=== PATIENT | female | born 1965 | race Caucasian/White ===

== ENCOUNTER → 2023-01-22 10:00 | Outpatient (CLI) | payer OTHER, SELFPAY ==
[2023-01-22 18:47] LABS: Basophils # 0.1 K/mm3 (0-0.2); Basophils % 0.8 % (0.1-2.0); Eosinophils # 0.2 K/mm3 (0.0-0.4); Eosinophils % 3.5 % (0.1-12.0); Hematocrit 42.6 % (37.0-47.0); Hemoglobin 14.3 g/dL (12.2-16.2); Lymphocytes # 2.2 K/mm3 (0.7-4.5); Lymphocytes % 34.8 % (10-50); Mean Corpuscular HGB Conc 33.5 g/dL (31.8-35.4); Mean Corpuscular Hemoglobin 32.2 pg (27.0-31.2); Mean Corpuscular Volume 96.3 fl (81-99); Mean Platelet Volume 7.4 fl (7.4-10.4); Monocytes # 0.3 K/mm3 (0.1-1.0); Monocytes % 5.2 % (1.7-9.3); Neutrophils # 3.5 K/mm3 (1.8-7.8); Neutrophils % 55.8 % (37.0-80.0); Platelet Count 390 K/mm3 (142-424); Red Blood Count 4.42 M/mm3 (4.20-5.40); Red Cell Distribution Width 13.4 % (11.5-17.5); White Blood Count 6.2 K/mm3 (4.8-10.8)
[2023-01-22 18:57] LABS: Alanine Aminotransferase 13 U/L (12-78); Albumin Level 4.1 g/dl (3.5-5.0); Albumin/Globulin Ratio 1.4 (1.1-1.8); Alkaline Phosphatase 125 U/L (38-126); Anion Gap 12.2 mEq/L (5-15); Aspartate Amino Transferase 21 U/L (14-36); Bilirubin,Total 0.2 mg/dl (0.2-1.3); Blood Urea Nitrogen 10 mg/dl (7-17); Calcium 9.1 mg/dl (8.4-10.2); Carbon Dioxide 30 mmol/L (22.0-30.0); Chloride 101 mmol/L (98-107); Chol/HDL Ratio 4.5 (1-3.5); Cholesterol 158 mg/dl (140-200); Estimated Glomerular Filt Rate 57 ml/min (>60); GFR (African American) 69 ML/MIN (>60); Globulin 2.9 g/dL (1.3-3.2); Glucose 102 mg/dl (74-100); HDL Cholesterol 35 mg/dl (40-60); Potassium 4.2 mmoL/L (3.5-5.1); Sodium 139 mmol/L (136-145); Triglycerides 141 mg/dl (30-150); VLDL Cholesterol 28 mg/dL (0-40)
[2023-01-22 19:08] LABS: Direct LDL Cholesterol 82.89 mg/dL (100-129)
[2023-01-22 19:14] LABS: T4 (Thyroxine) 5.5 ug/dl (5.53-11.0)
[2023-01-22 19:16] LABS: 25-OH Vitamin D, Total 38.2 ng/mL (30-100)
== END ==
PROVIDERS: PCP Emergency Medicine; Visit Provider Emergency Medicine
DX: R53.83 Other fatigue (principal); Z79.899 Other long term (current) drug therapy
CPT/HCPCS: 80053; 80061; 82306; 84436; 84443; 85025

== ENCOUNTER → 2023-03-19 09:24 | Outpatient (CLI) | payer OTHER, SELFPAY ==
[2023-03-19 19:29] LABS: Amphetamine/Metha Screen,Urine Negative ng/ml (<1000)
[2023-03-19 19:30] LABS: Barbiturates Screen,Urine Negative ng/ml (<200)
[2023-03-19 19:31] LABS: Benzodiazepines Screen,Urine Negative ng/ml (<200); Cannabinoid Screen,Urine Negative ng/ml (<50)
[2023-03-19 19:35] LABS: Cocaine Screen,Urine Negative ng/ml (<300)
[2023-03-19 19:36] LABS: Methadone Screen,Urine Negative ng/ml (<300); Opiate Screen,Urine Positive ng/ml (<300)
[2023-03-19 19:40] LABS: Phencyclidine Screen,Urine Negative ng/ml (<25)
[2023-03-19 19:50] LABS: Thyroid Stimulating Hormone 9.18 uIU/mL (0.465-4.68)
== END ==
PROVIDERS: PCP Emergency Medicine; Visit Provider Emergency Medicine
DX: M54.12 Radiculopathy, cervical region (principal); R79.89 Other specified abnormal findings of blood chemistry
CPT/HCPCS: 80305; 84443

== ENCOUNTER → 2023-05-04 09:12 | Outpatient (CLI) | payer OTHER, SELFPAY ==
[2023-05-04 18:52] LABS: Amphetamine/Metha Screen,Urine Negative ng/ml (<1000)
[2023-05-04 18:53] LABS: Barbiturates Screen,Urine Negative ng/ml (<200); Benzodiazepines Screen,Urine Negative ng/ml (<200)
[2023-05-04 18:54] LABS: Cannabinoid Screen,Urine Negative ng/ml (<50); Cocaine Screen,Urine Negative ng/ml (<300)
[2023-05-04 18:55] LABS: Methadone Screen,Urine Negative ng/ml (<300)
[2023-05-04 18:56] LABS: Opiate Screen,Urine Positive ng/ml (<300); Phencyclidine Screen,Urine Negative ng/ml (<25)
== END ==
LOC: LAB.DROPOF 05-05 09:12
PROVIDERS: PCP Emergency Medicine; Visit Provider Emergency Medicine
DX: Z79.899 Other long term (current) drug therapy (principal)
CPT/HCPCS: 80305

== ENCOUNTER 2023-07-08 21:49 | Outpatient (CLI) | payer OTHER, SELFPAY ==
[2023-07-08 19:20] LABS: Chloride 101 mmol/L (98-107); Potassium 3.9 mmoL/L (3.5-5.1); Sodium 136 mmol/L (136-145)
[2023-07-08 19:23] LABS: Alanine Aminotransferase 14 U/L (12-78); Albumin/Globulin Ratio 1.5 (1.1-1.8); Alkaline Phosphatase 118 U/L (38-126); Anion Gap 10.9 mEq/L (5-15); Aspartate Amino Transferase 30 U/L (14-36); Bilirubin,Total 0.4 mg/dl (0.2-1.3); Blood Urea Nitrogen 8 mg/dl (7-17); Carbon Dioxide 28 mmol/L (22.0-30.0); Estimated Glomerular Filt Rate 74 ml/min (>60); GFR (African American) 90 ML/MIN (>60); Globulin 2.7 g/dL (1.3-3.2); Total Protein,Serum 6.7 g/dl (6.3-8.2)
[2023-07-08 19:24] LABS: Calcium 8.9 mg/dl (8.4-10.2); Glucose 96 mg/dl (74-100)
[2023-07-08 20:00] LABS: Thyroid Stimulating Hormone 6.15 uIU/mL (0.465-4.68)
[2023-07-08 21:37] LABS: Creatinine,Urine Random 88 mg/dL (Not Estab.)
[2023-07-08 21:48] LABS: Amphetamine/Metha Screen,Urine Negative ng/ml (<1000)
[2023-07-08 21:51] LABS: Barbiturates Screen,Urine Negative ng/ml (<200)
[2023-07-08 21:52] LABS: Benzodiazepines Screen,Urine Negative ng/ml (<200); Cannabinoid Screen,Urine Negative ng/ml (<50)
[2023-07-08 21:53] LABS: Cocaine Screen,Urine Negative ng/ml (<300); Methadone Screen,Urine Negative ng/ml (<300); Microalbumin < 6.000 mg/L (0-16.7)
[2023-07-08 21:54] LABS: Hemoglobin A1C 5.7 % (4.0-6.0); Opiate Screen,Urine Positive ng/ml (<300)
[2023-07-08 21:57] LABS: Phencyclidine Screen,Urine Negative ng/ml (<25)
== END 2023-07-08 23:59 ==
LOC: LAB.DROPOF 21:50
PROVIDERS: PCP Internal Medicine; Visit Provider Internal Medicine
DX: Z79.899 Other long term (current) drug therapy (principal); E03.9 Hypothyroidism, unspecified
CPT/HCPCS: 80053; 80307; 82043; 82570; 83036; 84443

== ENCOUNTER 2023-09-28 16:22 | Outpatient (CLI) | payer OTHER, SELFPAY ==
[2023-09-28 19:14] LABS: Thyroid Stimulating Hormone 0.11 uIU/mL (0.465-4.68)
== END 2023-09-28 23:59 ==
LOC: LAB.DROPOF 09-29 16:22
PROVIDERS: PCP Internal Medicine; Visit Provider Internal Medicine
DX: E03.9 Hypothyroidism, unspecified (principal)
CPT/HCPCS: 84443

== ENCOUNTER 2023-11-29 18:00 | Outpatient (CLI) | payer OTHER, SELFPAY | END 2023-11-29 23:59 | disposition home or self-care (01) | LOC: LAB.DROPOF 11-30 08:18 | PROVIDERS: PCP Internal Medicine; Visit Provider Internal Medicine | DX: R79.89 Other specified abnormal findings of blood chemistry (principal); Z79.899 Other long term (current) drug therapy | CPT/HCPCS: 84443 ==

== ENCOUNTER 2024-09-04 11:30 | Outpatient (CLI) | payer OTHER, SELFPAY ==
[2024-09-04 19:56] LABS: Basophils # 0.1 K/mm3 (0-0.2); Basophils % 1.1 % (0.1-2.0); Eosinophils # 0.2 K/mm3 (0.0-0.4); Hematocrit 39.3 % (37.0-47.0); Hemoglobin 13.1 g/dL (12.2-16.2); Lymphocytes # 2.2 K/mm3 (0.7-4.5); Lymphocytes % 27.7 % (10-50); Mean Corpuscular HGB Conc 33.3 g/dL (31.8-35.4); Mean Corpuscular Hemoglobin 30.9 pg (27.0-31.2); Mean Corpuscular Volume 92.7 fl (81-99); Mean Platelet Volume 9.3 fl (7.4-10.4); Monocytes # 0.5 K/mm3 (0.1-1.0); Monocytes % 6.5 % (1.7-9.3); Neutrophils # 4.9 K/mm3 (1.8-7.8); Neutrophils % 61.5 % (37.0-80.0); Platelet Count 379 K/mm3 (142-424); Red Blood Count 4.24 M/mm3 (4.20-5.40); Red Cell Distribution Width 12.3 % (11.5-17.5)
[2024-09-04 20:07] LABS: Hemoglobin A1C 5.6 % (4.0-6.0)
[2024-09-04 20:42] LABS: Alanine Aminotransferase 12 U/L (12-78); Albumin Level 4.4 g/dl (3.5-5.0); Albumin/Globulin Ratio 1.6 (1.1-1.8); Alkaline Phosphatase 130 U/L (38-126); Anion Gap 6.7 mEq/L (5-15); Aspartate Amino Transferase 26 U/L (14-36); Bilirubin,Total 0.5 mg/dl (0.2-1.3); Blood Urea Nitrogen 11 mg/dl (7-17); Calcium 10.4 mg/dl (8.4-10.2); Carbon Dioxide 35 mmol/L (22.0-30.0); Chloride 100 mmol/L (98-107); Chol/HDL Ratio 3.2 (1-3.5); Cholesterol 144 mg/dl (140-200); Estimated Glomerular Filt Rate 86 ml/min (>60); GFR (African American) 104 ML/MIN (>60); Globulin 2.7 g/dL (1.3-3.2); Glucose 93 mg/dl (74-100); HDL Cholesterol 45 mg/dl (40-60); Potassium 4.7 mmoL/L (3.5-5.1); Sodium 137 mmol/L (136-145); Total Protein,Serum 7.1 g/dl (6.3-8.2); Triglycerides 137 mg/dl (30-150); VLDL Cholesterol 27 mg/dL (0-40)
[2024-09-04 20:54] LABS: Direct LDL Cholesterol 63.69 mg/dL (100-129)
[2024-09-04 21:00] LABS: 25-OH Vitamin D, Total 38.3 ng/mL (30-100)
== END 2024-09-04 23:59 | disposition home or self-care (01) ==
LOC: LAB.DROPOF 09-05 14:24
PROVIDERS: PCP Family Medicine; Visit Provider Family Medicine
DX: R73.03 Prediabetes (principal); R79.89 Other specified abnormal findings of blood chemistry; R63.4 Abnormal weight loss; E03.9 Hypothyroidism, unspecified
CPT/HCPCS: 80053; 80061; 82306; 83036; 84443; 85025

== ENCOUNTER 2024-11-03 10:57 | Outpatient (CLI) | payer OTHER, SELFPAY ==
[2024-11-03 18:51] LABS: Thyroid Stimulating Hormone 3.93 uIU/mL (0.465-4.68)
== END 2024-11-03 23:59 | disposition home or self-care (01) ==
LOC: LAB.DROPOF 11-07 10:57
PROVIDERS: PCP Family Medicine; Visit Provider Family Medicine
DX: E03.9 Hypothyroidism, unspecified (principal); K72.90 Hepatic failure, unspecified without coma; R79.89 Other specified abnormal findings of blood chemistry
CPT/HCPCS: 84443